=== PATIENT | male | born 1950 | race Caucasian/White ===

== ENCOUNTER 2016-06-12 12:01 | Emergency (ER) | payer OTHER ==
[~2016-06-12] VITALS: Ht 182.9 cm; Wt 102.1 kg
[~2016-06-12 12:01] MED LIST: ATORVASTATIN CA80 MG PO; FLOMAX(MONOGRA0.4 MG PO; HYDROCODONE/APA1 TA1 PO; ZETIA10 MG PO
--- NOTE | 2016-06-12 12:18 | ED UPPER/LOWER EXTREMITY COMPL ---
History of Present Illness General Chief Complaint: Hip Injury Stated Complaint: LEFT HIP PAIN Source: patient, family, old records Exam Limitations: no limitations Vital Signs & Intake/Output Vital Signs & Intake/Output Vital Signs Date Time Temp Pulse Resp B/P Pulse O2 O2 Flow FiO2 Ox Delivery Rate 06/12 1438 97.0 74 18 130/80 98 Room Air 06/12 1211 98.4 78 18 137/84 99 Room Air Allergies Coded Allergies: NO KNOWN ALLERGIES (04/20/14) Reconcile Medications Atorvastatin Calcium (Lipitor) 80 MG TABLET 1 TAB PO DAILY CHOLESTEROL ( Reported) Ezetimibe (Zetia) 10 MG TAB 1 TAB PO DAILY BP (Reported) HYDROCODONE/ACETAMINOPHEN (Hydrocodon-Acetaminophen 5-325) 5 MG-325 MG TABLET 1 TAB PO Q4-6 PRN PAIN Tamsulosin Hydrochloride (Flomax) 0.4 MG CAP.ER.24H 1 CAP PO DAILY KIDNEY STONE Triage Note: 65 Y/O MALE C/O L HIP PAIN, ONSET THIS AM. STATES HE HAS HX L HIP REPLACMENT X 2 AND HX 5 DISLOCATIONS. WAS AT GYM WHEN HE WAS LIFTING WEIGHTS AND "FELT SOMETHING POP". HAS HAD PAIN SINCE. STATES HE IS ABLE TO WALK BUT WITH DIFFICULTY. IN W/C FOR COMFORT. TAKEN TO ROOM 2 Triage Nurses Notes Reviewed? yes Onset: Abrupt Duration: hour(s): (3) Timing: recent history Severity: moderate Severity Numbers: 4 Pain/Injury Location: Left: Hip. Method of Injury: weightlifting No Modifying Factors: none Associated Symptoms: none HPI: 65 year old male with history of HLD, b/l hip arthroplasty requiring revision [place] [address] kenton erwin. pt presents today c/o mild to moderate aching pain to left hip since this morning while at the gym at 10am. he states he was lifting weights above his head when he felt a sudden pop in his hip. his history is sig for 5 dislocations in the past prior to the revision in , none since. he denies fall to the ground or other trauma, no back, knee, foot or ankle pain. he has not taken anything for his symptoms and is declining anything when offered. pt states he has been able to bear weight on leg, however states his range of motion is limited since the injury occurred. no other modifying factors or associated sxotherwise. (LUCIA JACKSON,SCOOTER) Past History Travel History Traveled to [place] past 21 day No Medical History Any Pertinent Medical History? 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 No (SCOOTER JORDAN) Review of Systems Review of Systems Constitutional: Reports: see HPI. All Other Systems: Reviewed and Negative Comments Review of systems: See HPI, All other systems negative. Constitutional, no chills no fever, no malaise HEENT: no sore throat no congestion, no ear pain Cardiovascular: No chest pain , no palpitation Skin, no rashes, no change in skin Respiratory: No dyspnea no cough no sputum GI: No nausea no vomiting, no diarrhea, no bloating : No dysuria No hematuria, no frequency, Muscle skeletal: joint pain, no joint swelling, no back pain, no neck pain, Neurologic: No numbness no confusion, no headache Psych: No stress Heme/endocrine: No bruising no bleeding Immunology: No lymphadenopathy, (SCOOTER JORDAN) Physical Exam Physical Exam General Appearance: well developed/nourished, no apparent distress, alert, awake Comments: Well-developed well-nourished patient in no apparent distress. HEENT: Atraumatic, extraocular motion intact Neck: Supple, FROM, Back: FROM, Nontender Cardiovascular: Regular rate and rhythms no murmurs rubs Respiratory: . No respiratory distress. Patient speaking in full complete sentences. Breath sounds clear to auscultation bilaterally: NO W/R/R Abdomen: Soft nontender no rebound no guarding no palpable hernia Male : Atraumatic no scrotal tenderness no swelling no hernia Upper Extremities: full range of motion Hip/Pelvis: Atraumatic/Stable. LROM OF THE L HIP SECONDARY TO PAIN, NO ROTATION, NO SHORTENING OF THE LEFT LEG. No pain with pelvic compression Knee: Atraumatic/stable. FROM. No joint swelling, no effusion. No laxity. Negative alonso/anterior drawer test. No pain with ROM Leg: Atraumatic. Nontender. No edema, 5 out of 5 strength in the lower extremity, normal dorsiflexion of great toe bilaterally, gross sensation is intact, Ankle/Foot: Atraumatic/stable. Skin intact. FROM. No swelling, no effusion. No laxity on exam Pulses: Normal/equal DP/PT pulses bilaterally. Brisk cap refill Neuro: Alert and oriented x3 Skin: Warm & dry;No appreciable rash on exposed skin Psych: Mood affect normal, normal memory normal judgment. (SCOOTER JORDAN) Progress Differential Diagnosis: contusion, dislocation, fracture, sprain, tendon injury, HERNIA Plan of Care: Orders Procedure Date/time Status CT PELVIS WO IV CONTRAST 06/12 1259 Active xray ordered pt declinign anything for pain dr guzman at bedside pt resting in nad, d/w pt and his xray results ct ordered 1400 d/w pt plan of care, call placed to pts ortho dr kenton erwin D/W DR MARSHA NARANJO AT [facility], ADVISED THEY WOULD LIKE TO SEE THE PATIENT NEXT WEEK, WEIGTH BEARING TOLERATED, PAIN CONTROL. D/WPT PLAN OF CARE, HE IS DECLING AGAIN ANYTHING FOR PAIN HERE, AND DECLININGPRESCRIPTION FOR PAIN MEDICATION, ADVISED REST, WEIGHT BEARING NO STRENUOUS ACTIVITY. ADVISED RETURN AT ANYTIME SOONER WITH ANY CONCERNS. THEY FEEL COMFORTABLE WITH PLAN, CLEARED FOR DC (SCOOTER JORDAN) Diagnostic Imaging: Viewed by Me: Radiology Read, CT Scan. Discussed w/RAD: Radiology Read, CT Scan. Radiology Impression: PATIENT: CASSY IYER PRESENT AGE: 65 PATIENT ACCOUNT NO: [id number] : 51 LOCATION: [facility] ORDERING PHYSICIAN: SCOOTER JACKSON SERVICE DATE: 06/12/16 EXAM TYPE: RAD - XRY-HIP 2-3 VIEWS, LEFT EXAMINATION: XR HIP, LEFT CLINICAL INFORMATION: Left hip popped. Evaluate for dislocation. COMPARISON: None TECHNIQUE: Two views of the left hip. AP view of the pelvis FINDINGS: There are bilateral hip prostheses. There is no evidence of hardware loosening. There are no fractures or dislocations. The left hip prosthetic femoral head is asymmetrically positioned in the superior aspect of the acetabulum. IMPRESSION: No acute fractures. Asymmetric positioning of the prosthetic left femoral head within the acetabular cup. This is suggestive of significant wear of the polyethylene liner. Recommend follow-up with the patient's orthopedic surgeon to evaluate for revision. DICTATED BY: LALI SANABRIA MD DATE/TIME DICTATED:06/12/161256 HOUSEHOLD ASSISTANT:LUISA DATE/TIME TRANSCRIBED:06/12/161256 CONFIDENTIAL, DO NOT COPY WITHOUT APPROPRIATE AUTHORIZATION. <Electronically signed in Other Vendor System> SIGNED BY: LALI SANABRIA MD 06/12/16 1322, PATIENT: CASSY IYER PRESENT AGE: 65 PATIENT ACCOUNT NO: [id number] : 51 LOCATION: [facility] ORDERING PHYSICIAN: SCOOTER JACKSON SERVICE DATE: 06/12/16 EXAM TYPE: CAT - CT PELVIS WO IV CONTRAST EXAMINATION: CT PELVIS WITHOUT CONTRAST CLINICAL INFORMATION: Evaluate for dislocation. Pelvic fractures. COMPARISON: CT abdomen and pelvis dated 2014 x-ray pelvis and left hip dated 06/12/2016 TECHNIQUE: Helical scanning was performed with submillimeter collimation through the pelvis. Sagittal and coronal multiplanar 2-D reconstructions were obtained. DLP: 1203.76 mGy-cm FINDINGS: PELVIS: Bilateral hip prosthesis. Evaluation of the adjacent bones is somewhat limited due to beam hardening artifacts. No evidence of acute fracture or dislocation. Visualized hardware appears to be intact. The inferior tip of the left femoral component is not included in examination. There is no evidence of acute fracture. Right-sided subtle lucencies adjacent to the acetabular component . Mild degenerative spurring noted adjacent to bilateral greater trochanteric regions. Bony spurring also noted adjacent to the inferior right acetabulum. Degenerative facet noted at L5-S1 level. Visualized soft tissue structures do not demonstrate any gross evidence of hematoma formation. Mild atherosclerotic disease. Status post herniorrhaphy slightly redundant appearing abdominal wall mesh. Colonic diverticulosis noted in the sigmoid colon. No evidence of acute diverticulitis. No evidence of pelvic lymphadenopathy. Bilateral patent processes vaginalis. Mild stranding of the fat noted in the pubic region. This may be accentuated by beam hardening artifacts. IMPRESSION: 1. Status post bilateral hip arthroplasty. 2. No evidence of acute fracture or dislocation. 3. Lucencies noted in the acetabulum adjacent to the acetabular component. Cystic change or loosening included in the differential possibilities. 4. Colonic diverticulosis. No evidence of acute diverticulitis. DICTATED BY: ABDULLAHI MAHAJAN MD DATE/TIME DICTATED:06/12/161332 HOUSEHOLD ASSISTANT:LUISA DATE/TIME TRANSCRIBED:06/12/161332 CONFIDENTIAL, DO NOT COPY WITHOUT APPROPRIATE AUTHORIZATION. <Electronically signed in Other Vendor System> SIGNED BY: ABDULLAHI MAHAJAN MD 06/12/16 9984 (SCOOTER JORDAN) Departure Departure Disposition: HOME OR SELF CARE Condition: Stable Clinical Impression Primary Impression: Hip pain Referrals: JENISE ADDISON,ZOILA Rai (PCP/Family) Additional Instructions: FOLLOW UP WITH YOUR ORTHOPEDIST DR ERWIN ON WEDNESDAY. TYLENOL OR MOTRIN NEEDED FOR PAIN. NO STRENUOUS ACTIVITY OR WEIGHTLIFTING UNTIL SEEN BY ORTHOPEDIST. Departure Forms: Customer Survey General Discharge Information (SCOOTER JORDAN) PA/RETAIL MERCHANDISING SPECIALIST Co-Sign Statement Statement: ED Attending supervision documentation- [X] I saw and evaluated the patient. I have also reviewed all the pertinent lab results and diagnostic results. I agree with the findings and the plan of care as documented in the PA's/RETAIL MERCHANDISING SPECIALIST's documentation. [X I have reviewed the ED Record and agree with the PA's/RETAIL MERCHANDISING SPECIALIST's documentation. [] Additions or exceptions (if any) to the PAs/RETAIL MERCHANDISING SPECIALIST's note and plan are summarized below: [] (DEANNA ADDISON,IRAIDA)
--- NOTE | 2016-06-12 13:22 | RADIOLOGY REPORT ---
EXAMINATION: XR HIP, LEFT CLINICAL INFORMATION: Left hip popped. Evaluate for dislocation. COMPARISON: None TECHNIQUE: Two views of the left hip. AP view of the pelvis FINDINGS: There are bilateral hip prostheses. There is no evidence of hardware loosening. There are no fractures or dislocations. The left hip prosthetic femoral head is asymmetrically positioned in the superior aspect of the acetabulum. IMPRESSION: No acute fractures. Asymmetric positioning of the prosthetic left femoral head within the acetabular cup. This is suggestive of significant wear of the polyethylene liner. Recommend follow-up with the patient's orthopedic surgeon to evaluate for revision.
--- NOTE | 2016-06-12 13:51 | CT SCAN REPORT ---
EXAMINATION: CT PELVIS WITHOUT CONTRAST CLINICAL INFORMATION: Evaluate for dislocation. Pelvic fractures. COMPARISON: CT abdomen and pelvis dated 04/20/2014 x-ray pelvis and left hip dated 06/12/2016 TECHNIQUE: Helical scanning was performed with submillimeter collimation through the pelvis. Sagittal and coronal multiplanar 2-D reconstructions were obtained. DLP: 1203.76 mGy-cm FINDINGS: PELVIS: Bilateral hip prosthesis. Evaluation of the adjacent bones is somewhat limited due to beam hardening artifacts. No evidence of acute fracture or dislocation. Visualized hardware appears to be intact. The inferior tip of the left femoral component is not included in examination. There is no evidence of acute fracture. Right-sided subtle lucencies adjacent to the acetabular component . Mild degenerative spurring noted adjacent to bilateral greater trochanteric regions. Bony spurring also noted adjacent to the inferior right acetabulum. Degenerative facet noted at L5-S1 level. Visualized soft tissue structures do not demonstrate any gross evidence of hematoma formation. Mild atherosclerotic disease. Status post herniorrhaphy slightly redundant appearing abdominal wall mesh. Colonic diverticulosis noted in the sigmoid colon. No evidence of acute diverticulitis. No evidence of pelvic lymphadenopathy. Bilateral patent processes vaginalis. Mild stranding of the fat noted in the pubic region. This may be accentuated by beam hardening artifacts. IMPRESSION: 1. Status post bilateral hip arthroplasty. 2. No evidence of acute fracture or dislocation. 3. Lucencies noted in the acetabulum adjacent to the acetabular component. Cystic change or loosening included in the differential possibilities. 4. Colonic diverticulosis. No evidence of acute diverticulitis.
[2016-06-12 14:38] VITALS: BP 130/80
== END 2016-06-12 14:44 ==
LOC: ERH 12:01
DX: M25.552 Pain in left hip (principal)
CPT/HCPCS: 73502-LT